=== PATIENT | male | born 1950 | race Two or more races ===

== ENCOUNTER 2018-01-01 13:55 | Outpatient (CLI) | payer OTHER ==
[~2018-01-01 13:55] MED LIST: AVAPRO150 MG; JANUMET XR 50-1 EACH; SYNTHROID137 MCG; TOPROL XL50 M1
== END 2018-01-01 14:04 | disposition home or self-care (01) ==
LOC: RAD 13:55
DX: R05 Cough (principal)

== ENCOUNTER 2018-06-11 12:42 | Outpatient (CLI) | payer OTHER | END 2018-06-11 13:00 | disposition home or self-care (01) | LOC: SONOGRAMA 12:42 → MAMO-SONO 13:15 | DX: E04.2 Nontoxic multinodular goiter (principal) ==